=== PATIENT | male | born 1985 | race Two or more races ===

== ENCOUNTER 2024-06-21 17:55 | Emergency (ER) | payer OTHER ==
[~2024-06-21] VITALS: Ht 170.2 cm; Wt 69.9 kg
[2024-06-21 18:06] VITALS: BP 125/80; O2SAT 97
[2024-06-21] MEDS ORDERED: CRESTOR40 MG (18:06)
[2024-06-21] MEDS ORDERED: NORFLEX100MG PO (19:41)
[2024-06-21] MEDS ORDERED: ORPHENADRINE CITRATE 30 MG/ML AMPUL IM STA (19:42)
[2024-06-21] MEDS ORDERED: DEXAMETHASONE SODIUM PHOSPHATE 4 MG/ML VIAL IM STA (19:44)
== END 2024-06-21 19:54 | disposition home or self-care (01) ==
LOC: ER 17:57
DX: M62.838 Other muscle spasm (principal)

== ENCOUNTER → 2025-02-22 | Emergency (ER) | payer OTHER ==
[~2025-02-22] VITALS: Ht 170.2 cm; Wt 68.0 kg
[~2025-02-22] MED LIST: CRESTOR40 MG; NORFLEX100MG PO
== END | disposition left against medical advice (07) ==
LOC: ER 23:47
DX: Z53.21 Procedure and treatment not carried out due to patient leaving prior to being seen by health care provider (principal)